=== PATIENT | male | born 1950 | race Caucasian/White ===

== ENCOUNTER → 2017-07-24 | Day surgery (SDC) | payer OTHER ==
[~2017-07-24] VITALS: Ht 188 cm; Wt 105.4 kg
[2017-07-24] VITALS (9 sets, daily range): BP systolic 116–131; BP diastolic 76–95; PULSE 58–74; RESP 10–17; O2SAT 93–97
[~2017-07-24] MED LIST: ACET-171 PO; CeFAZolin 2 Gm/50 mL D5W Duplex Bag IV ONE; CeFAZolin 2 Gm/50 mL D5W IV Premix IV ONE; DOCU240C41 PO; Dexamethasone 4 mg/mL Inj IVPUSH PRN; Dexamethasone 4 mg/mL Inj ONE; EPHEDrine Sulfate 50 mg/mL Inj IVPUSH PRN; FL.025O15 TOPICAL; HYDR-3090 PO; HYDROcodone-APAP 5-325 mg Tablet PO PRN; HYDROmorphone 0.5 mg/0.5 mL iSecure Syringe ONE; HYDROmorphone 1 mg/mL Inj IVPUSH PRN; IBUP-1827 PO; Ketamine 10 mg/mL 20 mL Inj ONE; Lactated Ringer's 1,000 ML IV SCH; Lactated Ringer's 500 ML IV PRN; Ondansetron 2 mg/mL 2 mL Inj IVPUSH PRN; Ondansetron 2 mg/mL 2 mL Inj ONE; POLY17PO6 PO; Phenylephrine 10,000 mCg/mL Inj IVPUSH PRN; Propofol 10,000 mCg/mL 20 mL Inj ONE; fentaNYL-PF 50 mCg/mL 2 mL Inj ONE
--- NOTE | 2017-07-24 08:43 | PCM.HPANE ---
Patient Data Surgeon Admitting Provider: Attending Provider:Aishwarya Ivory MD Primary Care Physician:Megan Xie MD Other Provider:Myah Ortiz Anesthesia Reason for Visit Left Kidney Stone Ht/WT & BMI Height (Feet): 6 Height (Inches): 2 Weight (Kilograms): 60.5 Body Mass Index 17.00 Allergies Coded Allergies: No Known Allergies (Verified , 07/17/17) Past Anesthesia History Anesthesia History: Positive for:: Anesthesia Reactions (vomiting), Denies:: Abnormal Airway, Difficult Intubation, Fam Anesthesia Reaction, Fam Malignant Hypertherm, Malignant Hyperthermia Diabetes History Hx Diabetes?: No MRSA MRSA: No Medications Hypertension Medication: No Home Meds Incl Beta Silvina: No Reported Medications Acetaminophen 500 Mg Tablet1,000 Mg PO Q6H PRN For Fever 07/24/17 Fluocinolone 0.025% Oint 60 Applic/15 Gm Oint1 Applic TOPICAL BID Ref 0 07/17/17 Ibuprofen 600 Mg [id number] Mg PO TID PRN For Pain Ref 0 07/17/17 History History of ENT Problems?: No HEENT History: Denies:: Abnormal Airway Cataracts Difficult Intubation Dysphagia Glaucoma Hearing Problem Sinus Problem TMJ Denture Type: Full- Upper Teeth Condition: Within Normal Limits Hx of Heart Problems?: No Cardiovascular History: Positive for:: Chest Pain (non cardiac chest pain) Denies:: Abdominal Aortic Aneurism Atrial Fibrillation Cardiac Surgery Congestive Heart Failure Coronary Artery Disease Edema Heart Murmur Hypertension Irregular Heartbeat Peripheral Vascular Hx of Respiratory Problem?: Yes Respiratory History: Positive for:: Pneumonia (2007) Denies:: Oxygen Administration Tuberculosis Use of C-PAP Machine Use of Inhalers / NEBS Hx Neurologic Problems?: No Neurological History: Denies:: Alzheimer's Disease CVA Dementia Dizziness Headaches Multiple Sclerosis Parkinson's Disease Seizures TIA Hx of GI Problems?: Yes (Low BMI) Other GI Pertinent History: small inguinal hernia left side Hx of Problems?: Yes Genitourinary History: Positive for:: Kidney Stones Denies:: HX of Hemodialysis HX of Peritoneal Dialysis: No Male Hx: Positive for:: Testicular Surgery (vasectomy ) Denies:: Prostate Problems Scrotal Mass Skin History: Positive for:: History Skin Disorders? (Seborrhea back neck = Fluocinolone cream) Denies:: Pressure Ulcers Hx Musculoskeletal Problems?: Yes Musculoskeletal History: Positive for:: Back Injury (1980 lam) Osteoarthritis Denies:: Degenerative Joint Fibromyalgia Joint Replacement Musculoskeletal Trauma Myasthenia Gravis Rheumatoid Arthritis Hx of Psycho/Social Problems?: No Hx Surgeries?: Yes (ANKLE, BACK, KNEE, HERNIA, ROTATOR CUFF, WRIST) Other History: Positive for:: Cancer (skin cancer ) Denies:: Hospitalization Thyroid Disease History Blood Transfusions: Positive for:: Accept Blood Products? Denies:: Blood Transfusions Hx Diabetes: No Hx Alcohol Use: YesAlcoholic Drinks Per Day: glass of wine a dayHx Substance Use: No Smoking Status: Former Smoker Stop/Bang Treated for Sleep Apnea?: No Do You Have a CPAP Machine?: No S-Snoring: Do You Snore Loudly: No T-Tired: feel tired, fatigued: Yes O-Obsered: Observed not breath: No P-Blood Pressure: treated: No B- Body Mass Index > 35 kg/m2: No A- Age over 50: Yes N- Neck Large Circumference: No G- Gender Male: Yes BRITTANIE Total Score: 3 BRITTANIE Risk Assessment: Low Risk, <3 Yes Risk Assessment Category Category 1A: Patient has history of documented sleep apnea, and HAS NOT received any narcotic, sedative or anesthesia administration during this stay. Category 1B: Patient has history of documented sleep apnea, and HAS received any narcotic , sedative or anesthesia administration during this stay Category 2: Patient has SUSPECTED Obstructive Sleep Apnea, and HAS received any narcotic , sedative or anesthesia administration during this stay. Category 3: Patient has SUSPECTED Obstructive Sleep Apnea and HAS NOT received narcotic, sedative or anesthesia administration during this stay. Category 4: Outpatient in Procedural Areas with known sleep apnea or who screen positive for High Risk via the STOP/BANG questionnaire. Exam Exam General Appearance: Alert, Oriented X3, Cooperative, No Acute Distress HEENT/AIRWAY: MP 2 Lungs: Clear to Auscultation, Normal Air Movement Heart: Exam Unremarkable, Regular Rate/Rhythm, No Murmurs/Rubs/Gallops Plan Impression Patient chart reviewed, patient interviewed and anesthestic plan with risks, benefits, and alternatives discussed, and informed consent obtained. NPO per Anesth. Guidelines: Yes ASA Physical Status: ASA2 Mod Systemic Disease (? reason for low BMI) Anesthetic Plan: GA Bene/Risks/Altern/Consents: Yes HP Complete Prior to Induction: Yes Bryant Singleton MD Jul 24, 2017 08:43
[2017-07-24] MEDS: Lactated Ringer's 1,000 ML IV SCH ×2 (10:52→13:29)
[2017-07-24] MEDS: fentaNYL-PF 50 mCg/mL 2 mL Inj IVPUSH PRN ×3 (11:57→12:26)
[2017-07-24] MEDS: MetoCLOpramide 5 mg/mL 2 mL Inj IVPUSH PRN ×2 (12:32→16:03)
--- NOTE | 2017-07-24 14:55 | OP ---
[address] [address] OPERATIVE REPORT PATIENT: MARIAH GUERRERO : 1950 MR#: [id number] ADMIT: 07/24/2017 JOB ID: [id number] DATE OF SURGERY: 07/24/2017 SURGEON: Aishwarya Ivory MD CAPTAIN WAITER: None. PREOPERATIVE DIAGNOSIS(ES): Left kidney stone. POSTOPERATIVE DIAGNOSIS(ES): Left kidney stone. PROCEDURE PERFORMED: 1. Cystoscopy and left retrograde pyelogram. 2. Left ureteral stent placement. FINDINGS: Tight distal ureteral over the pelvic brim. ANESTHESIA: General. ESTIMATED BLOOD LOSS: 1 mL. DRAINS: 6 x 28 left double-J ureteral stent. SPECIMENS: None. COMPLICATION: None. CONDITION: Stable. INDICATION FOR PROCEDURE: The patient is a 66-year-old gentleman with a 1.2 cm left kidney stone. He wishes to undergo the aforementioned procedure. DESCRIPTION OF PROCEDURE: After informed consent obtained, the patient was taken to the operating room. A time-out was performed identifying correct patient, surgical site, and procedure. General anesthesia was smoothly induced. He has placed in the lithotomy position and all pressure points were identified and appropriately padded. His genitals were then prepped and draped in usual sterile fashion. A 22-Bahamian rigid cystoscope was applied to the patient's urethra and advanced into the bladder. The bladder was drained. The left ureteral orifice was seen in orthotopic position. It was cannulated with 5-Bahamian open-ended Pollack catheter. Retrograde pyelogram was performed. The pyelogram appeared normal. Two Sensor tip wires were then loaded in succession into the renal pelvis as seen under fluoroscopy. A 12/14 access sheath, 24 cm long was attempted to be guided over one of the wires into the ureter, though it could not be navigated beyond the pelvic brim even with gentle manipulation. It was therefore decided to stop the procedure and remove the access sheath. The remaining Sensor tip wire was then backloaded into the cystoscope and a 6 x 28 double-J ureteral stent was loaded over it and advanced into the renal pelvis as seen under fluoroscopy. The wire then removed leaving a nice coil in the patient's bladder as seen under direct vision. The bladder was then drained. The patient was then reversed from general anesthesia and taken to the PACU in stable condition. NICOLE
--- NOTE | 2017-07-24 15:24 | DRSVH ---
PROCEDURE: X-RAY RETROGRADE UROGRAPHY INDICATIONS: LEFT URETERAL STENT PLACEMENT TECHNIQUE: AP intra-operative images acquired by the Urology service. COMPARISON: None. FINDINGS: Left ureteral stent projects into superior left renal calyx. IMPRESSION: Status post placement of left ureteral stent. Dictated by: Nichole James MD, PhD on 07/24/2017 at 15:21 Approved by: Nichole James MD, PhD on 07/24/2017 at 15:22
--- NOTE | 2017-07-25 07:11 | PCM.ANEP1 ---
Post Anesthesia PACU Phase 1 Assessment Anesthetic Administered: GA Level of Alertness: Awake, talking CLEMENS's with Equal Strength: Yes Pain: No Nausea or Vomiting: No CV Function & Hydration Stable: Yes Airway Device: LMA Oxygen Delivery: Nasal Cannula Lungs: Clear to Auscultation, Normal Air Movement PACU Phase 2 Assessment Complications: No Follow up Care: No Patient Instructions Provided: N/A Bryant Singleton MD Jul 25, 2017 07:11
== END | disposition home or self-care (01) ==
LOC: SAS 10:47
PROVIDERS: ATTEND Urology
DX: N20.0 Calculus of kidney (principal); E78.5 Hyperlipidemia, unspecified; M19.90 Unspecified osteoarthritis, unspecified site; Z85.828 Personal history of other malignant neoplasm of skin; Z68.1 Body mass index [BMI] 19.9 or less, adult
CPT/HCPCS: 52332; 74420; C2617; J0690; J1100; J1170; J2250; J2405; J2704; J2765; J3010; J7120; Q9967

== ENCOUNTER → 2017-07-30 | Day surgery (SDC) | payer OTHER ==
[2017-07-30] VITALS (8 sets, daily range): BP systolic 126–142; BP diastolic 83–89; PULSE 60–78; RESP 13–18; O2SAT 93–98
[~2017-07-30] VITALS: Ht 188 cm; Wt 105.0 kg
[~2017-07-30] MED LIST changes: -ACET-171 PO; -CeFAZolin 2 Gm/50 mL D5W Duplex Bag IV ONE; -Dexamethasone 4 mg/mL Inj IVPUSH PRN; -HYDROcodone-APAP 5-325 mg Tablet PO PRN; -HYDROmorphone 0.5 mg/0.5 mL iSecure Syringe ONE; -Ketamine 10 mg/mL 20 mL Inj ONE; +MetoCLOpramide 5 mg/mL 2 mL Inj IVPUSH PRN; +fentaNYL-PF 50 mCg/mL 2 mL Inj IVPUSH PRN
--- NOTE | 2017-07-30 07:22 | PCM.HPANE ---
Patient Data Surgeon Admitting Provider: Attending Provider:Aishwarya Ivory MD Primary Care Physician:Megan Xie MD Other Provider:Myah Ortiz Anesthesia Reason for Visit Left Kidney Stone Ht/WT & BMI Height (Feet): 6 Height (Inches): 2 Weight (Kilograms): 105 Body Mass Index 29.00 Allergies Coded Allergies: No Known Allergies (Verified , 07/26/17) Past Anesthesia History Anesthesia History: Positive for:: Anesthesia Reactions (vomiting), Denies:: Abnormal Airway, Difficult Intubation, Fam Anesthesia Reaction, Fam Malignant Hypertherm, Malignant Hyperthermia Diabetes History Hx Diabetes?: No MRSA MRSA: No Medications Hypertension Medication: No Home Meds Incl Beta Silvina: No Reported Medications Polyethylene Glycol 3350 (Miralax)17 Gm Powd.pack17 Gm PO PRN 07/30/17 Docusate Calcium (Stool Softener)240 Mg [id number] Mg PO 07/26/17 Hydrocodone-Acetaminophen 5-300 mg 1 Each Tablet1 Tablet PO Q4H PRN For Pain Ref 0 07/26/17 Ibuprofen 600 Mg [id number] Mg PO TID PRN For Pain Ref 0 07/26/17 Fluocinolone 0.025% Oint 60 Applic/15 Gm Oint1 Applic TOPICAL BID Ref 0 07/26/17 Discontinued Reported Medications Acetaminophen 500 Mg Tablet1,000 Mg PO Q6H PRN For Fever 07/24/17 Fluocinolone 0.025% Oint 60 Applic/15 Gm Oint1 Applic TOPICAL BID Ref 0 07/17/17 Ibuprofen 600 Mg [id number] Mg PO TID PRN For Pain Ref 0 07/17/17 History History of ENT Problems?: No HEENT History: Denies:: Abnormal Airway Cataracts Difficult Intubation Dysphagia Hearing Problem Sinus Problem TMJ Denture Type: Full- Upper Teeth Condition: Within Normal Limits Hx of Heart Problems?: No Cardiovascular History: Positive for:: Chest Pain (non cardiac chest pain) Denies:: Abdominal Aortic Aneurism Atrial Fibrillation Cardiac Surgery Congestive Heart Failure Edema Heart Murmur Hypertension Irregular Heartbeat Other History/Comments HX OF ATYPICAL CHEST PAIN Hx of Respiratory Problem?: Yes Respiratory History: Positive for:: Pneumonia (2007) Denies:: Asthma COPD Cough Oxygen Administration Tuberculosis Use of C-PAP Machine Hx Neurologic Problems?: No Neurological History: Denies:: Alzheimer's Disease CVA Dementia Dizziness Headaches Multiple Sclerosis Parkinson's Disease Seizures Hx of GI Problems?: No Gastrointestinal History: Denies:: Gastroesphageal Reflux Heartburn Liver Disease Hx of Problems?: Yes Genitourinary History: Positive for:: Kidney Stones Denies:: HX of Hemodialysis HX of Peritoneal Dialysis: No Male Hx: Positive for:: Testicular Surgery (vasectomy ) Denies:: Prostate Problems Scrotal Mass Skin History: Positive for:: History Skin Disorders? (Seborrhea back neck = Fluocinolone cream) Denies:: Pressure Ulcers Hx Musculoskeletal Problems?: Yes Musculoskeletal History: Positive for:: Back Injury (1980 lam) Denies:: Degenerative Joint Joint Replacement Musculoskeletal Trauma Osteoarthritis Rheumatoid Arthritis Hx of Psycho/Social Problems?: No Psycho Social History: Denies:: Anxiety Hx Depression Hx Surgeries?: Yes (ANKLE, BACK, KNEE, HERNIA, ROTATOR CUFF, WRIST) Hx Any Other Health Problems?: Yes Other History: Positive for:: Cancer (skin cancer ) Denies:: Hospitalization Thyroid Disease History Blood Transfusions: Positive for:: Accept Blood Products? Denies:: Blood Transfusions Hx Diabetes: No Hx Alcohol Use: YesAlcoholic Drinks Per Day: 1-2 glasses Red wine a nightHx Substance Use: No Smoking Status: Former Smoker Stop/Bang S-Snoring: Do You Snore Loudly: No T-Tired: feel tired, fatigued: No O-Obsered: Observed not breath: No P-Blood Pressure: treated: No B- Body Mass Index > 35 kg/m2: No A- Age over 50: Yes N- Neck Large Circumference: No G- Gender Male: No BRITTANIE Total Score: 1 BRITTANIE Risk Assessment: Low Risk, <3 Yes Risk Assessment Category Category 1A: Patient has history of documented sleep apnea, and HAS NOT received any narcotic, sedative or anesthesia administration during this stay. Category 1B: Patient has history of documented sleep apnea, and HAS received any narcotic , sedative or anesthesia administration during this stay Category 2: Patient has SUSPECTED Obstructive Sleep Apnea, and HAS received any narcotic , sedative or anesthesia administration during this stay. Category 3: Patient has SUSPECTED Obstructive Sleep Apnea and HAS NOT received narcotic, sedative or anesthesia administration during this stay. Category 4: Outpatient in Procedural Areas with known sleep apnea or who screen positive for High Risk via the STOP/BANG questionnaire. Exam Exam Vital Signs Vital Signs Date Time Temp Pulse Resp B/P Pulse Ox O2 Delivery O2 Flow Rate FiO2 07/30/17 06:20 35.9 69 16 126/86 95 Room Air General Appearance: Alert, Oriented X3, Cooperative, No Acute Distress HEENT/AIRWAY: MP 2 Lungs: Clear to Auscultation, Normal Air Movement Heart: Exam Unremarkable, Regular Rate/Rhythm, Normal S1, Normal S2, No Murmurs /Rubs/Gallops Plan Impression Patient chart reviewed, patient interviewed and anesthestic plan with risks, benefits, and alternatives discussed, and informed consent obtained. NPO per Anesth. Guidelines: Yes ASA Physical Status: ASA2 Mod Systemic Disease Anesthetic Plan: GA Bene/Risks/Altern/Consents: Yes HP Complete Prior to Induction: Yes Bjorn Porter MD Jul 30, 2017 07:22
--- NOTE | 2017-07-30 09:02 | PCM.ANEP1 ---
Post Anesthesia PACU Phase 1 Assessment Vital Signs Vital Signs Date Time Temp Pulse Resp B/P Pulse Ox O2 Delivery O2 Flow Rate FiO2 07/30/17 08:56 63 15 134/85 94 Room Air 07/30/17 08:52 36.4 65 18 136/85 94 Room Air 07/30/17 08:48 60 16 135/88 95 Room Air 07/30/17 08:39 71 13 130/89 96 Room Air 07/30/17 08:36 78 15 142/87 93 Room Air 07/30/17 08:32 75 13 134/83 98 Simple Mask 10 07/30/17 08:25 36.3 77 13 139/85 97 Simple Mask 10 07/30/17 06:20 35.9 69 16 126/86 95 Room Air Anesthetic Administered: GA Level of Alertness: Awake, talking Pain: No Nausea or Vomiting: No CV Function & Hydration Stable: Yes Airway Device: Oxygen Delivery: Room Air Lungs: Clear to Auscultation, Normal Air Movement PACU Phase 2 Assessment Complications: No Follow up Care: No Patient Instructions Provided: Yes Bjorn Porter MD Jul 30, 2017 09:02
--- NOTE | 2017-07-30 15:21 | OP ---
[address] [address] OPERATIVE REPORT PATIENT: MARIAH GUERRERO : 1950 MR#: [id number] ADMIT: 07/30/2017 JOB ID: [id number] DATE OF SURGERY: 07/30/2017 PREOPERATIVE DIAGNOSIS(ES): Left kidney stone. POSTOPERATIVE DIAGNOSIS(ES): Left kidney stone. PROCEDURE PERFORMED: 1. Cystoscopy and left ureteral stent removal. 2. Left ureteroscopy and laser lithotripsy with stone basketing. 3. Left retrograde pyelogram. 4. Left ureteral stent placement. SURGEON: Aishwarya Ivory MD. ANALYSIS CONSULTANT: None. FINDINGS: Porous, over 1 cm left renal pelvis stone. ANESTHESIA: General. ESTIMATED BLOOD LOSS: Less than 2 mL. DRAINS: A 6 x 28 left double-J ureteral stent. SPECIMENS: Left kidney stone. COMPLICATIONS: None. CONDITION: Stable. INDICATION FOR PROCEDURE: The patient is a 66-year-old gentleman with a left kidney stone. He now presents for the aforementioned procedure after having had a left ureteral stent placed last week. DESCRIPTION OF THE PROCEDURE: After informed consent was obtained, the patient was taken to the operating room. A time-out was performed identifying correct patient, surgical site, and procedure. General anesthesia was smoothly induced. He was given intravenous antibiotics just prior to the start of the procedure. He was placed in the lithotomy position and all pressure points were identified and appropriately padded. His genitals were then prepped and draped in usual sterile fashion. A 22-Yemeni rigid cystoscope was applied to the patient's urethra and advanced into the bladder. The bladder was drained. The left ureteral stent was seen emanating from the orifice. It was manipulated down to the urethral meatus with stent graspers. A Sensor tip wire was loaded through it and advanced into the renal pelvis. The stent was then backloaded off the wire and examined. It was ensured it was removed in its entirety. A second Sensor tip wire was then loaded into the renal pelvis as seen under fluoroscopy. A 12/14 access sheath 24 cm long was loaded over one of the wires and advanced into the distal aspect of the mid ureter. It glided over the wire without any difficulty. Flexible ureteroscopy then commenced. The ureter appeared normal. Retrograde pyelogram was performed. The stone was found within the renal pelvis. A 273 micron laser fiber wire was used to fragment the stone. The stone was quite porous and it was therefore quite easy to dust the stone using the laser. Every calyx was inspected. Some of the stone fragments had been chased back to the mid calyx. The stones were treated there. A 0-tip basket was used to bring down some of the tiny fragments of stone for stone analysis. The rest was just dust and sand debris. The ureteroscope was then brought down the level of the access sheath and both were brought down in tandem. The remaining ureter was normal. The remaining Sensor tip wire then backloaded into the cystoscope and a 6 x 28 double-J ureteral stent was loaded over it and advanced into the renal pelvis as seen under fluoroscopy. The wire was then removed leaving a nice coil in the patient's bladder as seen under direct vision. The bladder was then drained. The patient was then reversed from general anesthesia and taken back in good and stable condition. NICOLE
--- NOTE | 2017-07-30 17:00 | DRSVH ---
PROCEDURE: X-RAY RETROGRADE UROGRAPHY INDICATIONS: C-ARM ASSISTED LEFT STENT PLACEMENT TECHNIQUE: 3 intra-operative images acquired by the Urology service. COMPARISON: Outside Film, CT, CT ABD PELVIS WO CON, 06/25/2017, 8:41. [facility], CR, XR RETROGRADE UROGRAPHY, 07/24/2017, 13:44. FINDINGS: Examination is limited to 3 submitted images. Within these limits, guidewire has been clarence walt and there is partial opacification of the left renal collecting system demonstrating mild hydrone phrosis. No extravasation. The ureter is not opacified. Ureteral stent placed. IMPRESSION: Limited exam demonstrating mild left hydronephrosis and placement of ureteral stent. Dictated by: Rodrigo Bae RRA Interpreted: Keli Benjamin MD on 07/30/2017 at 8:43 Approved by: Keli Benjamin M.D. on 07/30/2017 at 16:58
[2017-08-05 09:09] LABS: Stone Color Tan (.)
== END | disposition home or self-care (01) ==
LOC: SAS 05:44
PROVIDERS: ATTEND Urology
DX: N20.0 Calculus of kidney (principal); E78.5 Hyperlipidemia, unspecified
CPT/HCPCS: 52356; 74420; 82360; C2617; J0690; J1100; J2405; J2704; J3010; J7120; Q9967